=== PATIENT | female | born 1935 | race African-American/Black ===

== ENCOUNTER 2017-04-30 06:55 | Inpatient (IN) | payer MEDICARE, OTHER ==
[~2017-04-30] VITALS: Ht 167.6 cm; Wt 72.1 kg
[2017-04-30] MEDS ORDERED: ASPIRIN 81MG TABLET PO STA (07:49)
[2017-04-30 08:04] LABS: BASOPHILS % 1.8 % (0.0-2.0); EOSINOPHILS % 3.4 % (0.0-5.0); HEMATOCRIT. 38.9 % (36.0-48.0); HEMOGLOBIN. 12.5 g/dL (12.0-16.0); MEAN CORPUSCULAR HEMOGLOBIN 26.8 pg (28.0-32.0); MEAN CORPUSCULAR VOLUME 83.4 fL (81.0-99.0); MONOCYTES % 8.5 % (2.0-8.0); NEUTROPHILS % 57.3 % (40.0-76.0); PLATELET 171 x1000/uL (130-400); RED BLOOD CELL COUNT 4.66 mill/uL (4.2-5.4); RED CELL DISTRIBUTION WIDTH 16.1 % (11.6-14.6)
[2017-04-30 08:11] LABS: PROTHROMBIN TIME 10.8 sec
[2017-04-30 08:14] LABS: CLARITY URINE CLEAR (CLEAR); COLOR URINE YELLOW (YELLOW); GLUCOSE URINE NEGATIVE (NEGATIVE); KETONES URINE NEGATIVE (NEGATIVE); LEUKOCYTE ESTERASE URINE NEGATIVE (NEGATIVE); NITRITE URINE NEGATIVE (NEGATIVE); OCCULT BLOOD URINE 2+ (NEGATIVE); PH URINE 5.5 (4.5-8.0); PROTEIN URINE NEGATIVE (NEGATIVE); SPECIFIC GRAVITY URINE 1.014 (1.005-1.030); UROBILINOGEN URINE 0.2 E.U./dL (0.2-1.0)
[2017-04-30 08:19] LABS: CARBON DIOXIDE 29 mEq/L (21-32); CHLORIDE 107 mEq/L (98-107)
[2017-04-30 08:21] LABS: TROPONIN I 0.03 ng/mL (0.00-0.04)
[2017-04-30] MEDS ORDERED: CLONIDINE 0.1MG TABLET PO PRN (16:45)
[2017-04-30 17:41] VITALS: BP 138/85
[2017-04-30] MEDS ORDERED: FURO40TA5 PO (18:45)
[2017-04-30] MEDS ORDERED: ACETAMINOPHEN 325MG TABLET PO PRN (18:45)
[2017-04-30] MEDS ORDERED: PRAV20TA57 PO (18:45)
[2017-04-30] MEDS ORDERED: LOSA25TA12 PO (18:46)
[2017-04-30 20:00] VITALS: BP 128/79
[2017-05-01] VITALS: BP 139/89
[2017-05-01 04:00] VITALS: BP 126/87
[2017-05-01 07:37] LABS: EOSINOPHILS % 2.3 % (0.0-5.0); HEMATOCRIT. 38.2 % (36.0-48.0); HEMOGLOBIN. 12.3 g/dL (12.0-16.0); LYMPHOCYTES % 33.4 % (20.0-50.0); MEAN CORPUSCULAR VOLUME 83.9 fL (81.0-99.0); MEAN PLATELET VOLUME 9.6 fl (7.4-10.4); MONOCYTES % 10.3 % (2.0-8.0); PLATELET 162 x1000/uL (130-400); RED BLOOD CELL COUNT 4.56 mill/uL (4.2-5.4); RED CELL DISTRIBUTION WIDTH 16.6 % (11.6-14.6)
[2017-05-01 07:57] LABS: CARBON DIOXIDE 23 mEq/L (21-32); CHLORIDE 108 mEq/L (98-107); LDL CHOLESTEROL 91 mg/dL (5-100)
[2017-05-01 08:00] VITALS: BP 120/77
[2017-05-01 08:05] LABS: HDL CHOLESTEROL 68 mg/dL (40-59); TROPONIN I < 0.02 ng/mL (0.00-0.04)
[2017-05-01] MEDS: ENOXAPARIN 40MG/0.4ML SYR SUBCUT SCH (08:17)
[2017-05-01] MEDS: LOSARTAN POTASSIUM 25 MG TABLET PO SCH (08:17)
[2017-05-01 12:00] VITALS: BP 102/62
[2017-05-01 16:00] VITALS: BP 103/65
[2017-05-01 20:00] VITALS: BP 114/74
[2017-05-02] VITALS: BP 116/66
[2017-05-02 04:00] VITALS: BP 138/86
[2017-05-02 08:00] VITALS: BP 139/78
[2017-05-02] MEDS: LOSARTAN POTASSIUM 25 MG TABLET PO SCH (08:51)
[2017-05-02] MEDS: ENOXAPARIN 40MG/0.4ML SYR SUBCUT SCH (08:52)
[2017-05-02 10:11] VITALS: BP 139/78
== END 2017-05-02 10:30 | disposition home or self-care (01) | DRG 311 ==
LOC: ER 08:17 → 6WST 09:48 → SUPCPDRO 09:58 → ENRESERV 15:50
PROVIDERS: ADMIT Internal Medicine Nephrology; ATTEND Internal Medicine Nephrology
DX: I24.9 Acute ischemic heart disease, unspecified (principal); E78.5 Hyperlipidemia, unspecified; E78.00 Pure hypercholesterolemia, unspecified; I25.10 Atherosclerotic heart disease of native coronary artery without angina pectoris; I11.0 Hypertensive heart disease with heart failure; R31.29 Other microscopic hematuria; I50.9 Heart failure, unspecified
CPT/HCPCS: 36415; 71010; 80053; 80061; 81001; 83690; 83735; 83880; 84443; 84484; 85025; 85610; 93005; 99285; J1650

== ENCOUNTER → 2023-06-13 | Day surgery (SDC) | payer MEDICARE, MEDICAID ==
[~2023-06-13] VITALS: Ht 167.6 cm; Wt 54.9 kg
[~2023-06-13] MED LIST: BALANCED SALT IRRIG SOLN COMB1 500ML OP NR; CARV3.1242 PO; CHOL100022 PO; CYCLOPENTOLATE HCL 1% OPHTH DROPS 2ML RIGHTEYE ONE; FAMO40TA7 PO; FENTANYL CITRATE/PF 50MCG/ML 2ML VIAL ONE; FERR325T6 PO; HYALURONATE SODIUM 10 MG/ML 0.55ML SYRINGE IO ONE; LACTATED RINGERS 1,000 ML IV SCH; MIDAZOLAM HCL 2 MG/2 ML VIAL ONE; PHENYLEPHRINE HCL 10% OPHTH DROPS 5ML RIGHTEYE ONE; PRAV20TA57 PO; PROPOFOL 200MG/20ML VIAL IV ONE; SPIR25TA6 PO; TROPICAMIDE 1% OPHTH DROPS 15ML RIGHTEYE ONE; TRYPAN BLUE 0.5 ML DISP.SYRIN IO ONE
== END | disposition home or self-care (01) ==
LOC: OR 08:50
PROVIDERS: ATTEND Ophthalmology
DX: H25.89 Other age-related cataract (principal); I11.0 Hypertensive heart disease with heart failure; I50.9 Heart failure, unspecified; E78.00 Pure hypercholesterolemia, unspecified; D64.9 Anemia, unspecified; Z79.899 Other long term (current) drug therapy; Z98.890 Other specified postprocedural states; Z82.49 Family history of ischemic heart disease and other diseases of the circulatory system
CPT/HCPCS: 66982; J3010; J2250; J2704; J3490; A4217; Z7610 ×21; V2632; Q9957

== ENCOUNTER → 2023-08-22 | Day surgery (SDC) | payer MEDICARE, MEDICAID ==
[~2023-08-22] VITALS: Ht 167.6 cm; Wt 54.9 kg
[~2023-08-22] MED LIST changes: -BALANCED SALT IRRIG SOLN COMB1 500ML OP NR; +BALANCED SALT IRRIG SOLN COMB1 500ML OP ONE; +CYCLOPENTOLATE HCL 1% OPHTH DROPS 2ML LEFTEYE ONE; -CYCLOPENTOLATE HCL 1% OPHTH DROPS 2ML RIGHTEYE ONE; +KETOROLAC 30MG/ML VIAL ONE; +ONDANSETRON HCL 4MG/2ML INJ ONE; +PHENYLEPHRINE HCL 10% OPHTH DROPS 5ML LEFTEYE ONE; -PHENYLEPHRINE HCL 10% OPHTH DROPS 5ML RIGHTEYE ONE; +TROPICAMIDE 1% OPHTH DROPS 15ML LEFTEYE ONE; -TROPICAMIDE 1% OPHTH DROPS 15ML RIGHTEYE ONE; -TRYPAN BLUE 0.5 ML DISP.SYRIN IO ONE
== END | disposition home or self-care (01) ==
LOC: OR 07:25
PROVIDERS: ATTEND Ophthalmology
DX: H25.89 Other age-related cataract (principal); I11.0 Hypertensive heart disease with heart failure; I50.9 Heart failure, unspecified; E78.00 Pure hypercholesterolemia, unspecified; D64.9 Anemia, unspecified; Z79.899 Other long term (current) drug therapy; Z90.710 Acquired absence of both cervix and uterus; Z98.890 Other specified postprocedural states; Z82.49 Family history of ischemic heart disease and other diseases of the circulatory system; Z83.3 Family history of diabetes mellitus
CPT/HCPCS: 66982; J3010; J1885; J2250; J2405; J2704; J3490; A4217; Z7610 ×17; V2632